=== PATIENT | female | born 1990 | race African-American/Black ===

== ENCOUNTER 2022-05-27 07:55 | Inpatient (IN) | payer OTHER ==
[2022-05-27] MEDS ORDERED: CITRIC ACID/SODIUM CITRATE 30 ML UNIT-DOSE CUP PO ONE (08:30)
[2022-05-27] MEDS ORDERED: ELECTROLYTE-148 SOLN 500 ML IV SCH ×2 (08:30→09:00)
[2022-05-27] MEDS ORDERED: DEXAMETHASONE SOD PHOSPHATE 4 MG/1 ML VIAL ONE (09:50)
[2022-05-27] MEDS ORDERED: ceFAZolin SODIUM 1 GM VIAL ONE (09:50)
[2022-05-27] MEDS ORDERED: morphine SULFATE/PF 1 MG/2 ML (2cc Syringe - QUVA) ONE (09:50)
[2022-05-27] MEDS ORDERED: ONDANSETRON 4 MG/2 ML VIAL ONE (09:50)
[2022-05-27 09:59] VITALS: BMI 31.6
[2022-05-27] MEDS ORDERED: ONDANSETRON 4 MG/2 ML VIAL IVPUSH PRN (10:00)
[2022-05-27] MEDS ORDERED: ACETAMINOPHEN 325 MG TABLET (FP) PO PRN ×2 (10:00→12:34)
[2022-05-27] MEDS ORDERED: OXYTOCIN 30 UNITS in 0.9% NS 30 UNIT/500 ML INFUS.BAG IVPB ONE (10:22)
[2022-05-27] MEDS ORDERED: ELECTROLYTE-148 SOLN 1,000 ML IV SCH (10:30)
[2022-05-27] MEDS ORDERED: ePHEDrine SULFATE 50 MG/1 ML AMPULE ONE (10:40)
[2022-05-27] MEDS ORDERED: SODIUM CHLORIDE 0.9% P/F 10 ML VIAL IJ ONE (10:40)
[2022-05-27] MEDS ORDERED: OXYTOCIN 10 UNITS/ML VIAL ONE ×2 (11:56)
[2022-05-27 12:28] LABS: CORD BASE EXCESS -3.2 mmol/L (0-2); CORD HCO3 23.6 mmHg (20-29); CORD HCO3 25.4 mmHg (20-29); CORD PCO2 47.2 mmHg (30-78); CORD PCO2 60.3 mmHg (30-78); CORD pH 7.243 (7.14-7.44); CORD pH 7.316 (7.14-7.44)
[2022-05-27] MEDS ORDERED: WITCH HAZEL 50% (TUCKS) 40 PAD/JAR PAD TP PRN (12:34)
[2022-05-27] MEDS ORDERED: IBUPROFEN 800 MG/8 ML IJ IVPB PRN (12:34)
[2022-05-27] MEDS ORDERED: BENZOCAINE 20% 57 GM BOTTLE TP PRN (12:34)
[2022-05-27] MEDS ORDERED: METHYLERGONOVINE MALEATE 0.2 MG/1 ML AMP IM PRN (12:34)
[2022-05-27] MEDS ORDERED: BENZOCAINE 28 GM HEMORRHOIDAL OINTMENT TP PRN (12:34)
[2022-05-27] MEDS ORDERED: IBUPROFEN 600 MG TABLET (FP) PO PRN (12:34)
[2022-05-27] MEDS ORDERED: OXYTOCIN 20 UNITS in 0.9% NS 20 UNIT/1,000 ML INFUS.BAG IV SCH (12:45)
[2022-05-27] MEDS: CEFAZOLIN 1 GM in DEXTROSE 5%-WATER - 50 ML IVPB SCH (18:01)
[2022-05-27] MEDS: FERROUS SO4 325 MG TABLET (FP) PO SCH (21:19)
[2022-05-28] MEDS ORDERED: oxyCODONE HCL 5 MG TABLET PO PRN ×2 (00:34)
[2022-05-28] MEDS: CEFAZOLIN 1 GM in DEXTROSE 5%-WATER - 50 ML IVPB SCH ×2 (02:38→11:14)
[2022-05-28] MEDS: IBUPROFEN 600 MG TABLET (FP) PO PRN (05:46)
[2022-05-28] MEDS: SIMETHICONE 80 MG TAB.CHEW (FP) PO PRN ×2 (05:46→20:01)
[2022-05-28] MEDS: PRENATAL VITAMINS W/ FOLIC ACID TABLET (FP) PO SCH (09:07)
[2022-05-28] MEDS: FERROUS SO4 325 MG TABLET (FP) PO SCH ×2 (09:07→21:10)
[2022-05-28] MEDS: ENOXAPARIN NA (PORCINE) 40 MG/0.4 ML DISP.SYRIN SQ SCH (09:07)
[2022-05-28 09:18] LABS: BASO % 0.6 % (0-2.0); EOS % 0.5 % (0-4.5); HEMOGLOBIN 12.7 GM/dL (10.7-15.3); LYMPH % 22.4 % (8-40); MCH 28.2 pg (25.7-33.7); MCHC 33.3 g/dl (32.0-36.0); MEAN CELL VOLUME 84.8 fl (80-96); MEAN PLT VOLUME 8.7 fl (7.5-11.1); MONO % 8.6 % (3.8-10.2); NEUT % 67.9 % (42.8-82.8); PLATELET COUNT 187 10^3/uL (134-434); RBC 4.49 M/mm3 (3.60-5.2); RDW 14.5 % (11.6-15.6)
[2022-05-28] MEDS ORDERED: FLU VACC QS2022-23(6MOS UP)/PF 60 MCG/0.5 ML SYRINGE IM ONE (10:00)
[2022-05-28] MEDS ORDERED: BISACODYL 10 MG SUPP.RECT RC PRN (12:34)
[2022-05-28] MEDS: SENNOSIDES/DOCUSATE COMBO (SENNA PLUS) TABLET (UD) PO PRN (21:11)
[2022-05-29] MEDS: SIMETHICONE 80 MG TAB.CHEW (FP) PO PRN ×4 (05:40→22:13)
[2022-05-29] MEDS: IBUPROFEN 600 MG TABLET (FP) PO PRN ×4 (05:40→22:13)
[2022-05-29] MEDS: FERROUS SO4 325 MG TABLET (FP) PO SCH ×2 (09:14→22:13)
[2022-05-29] MEDS: ENOXAPARIN NA (PORCINE) 40 MG/0.4 ML DISP.SYRIN SQ SCH (09:14)
[2022-05-29] MEDS: PRENATAL VITAMINS W/ FOLIC ACID TABLET (FP) PO SCH (09:14)
[2022-05-29 22:12] VITALS: RESP 18
[2022-05-29] MEDS: SENNOSIDES/DOCUSATE COMBO (SENNA PLUS) TABLET (UD) PO PRN (22:13)
[2022-05-30] MEDS: SIMETHICONE 80 MG TAB.CHEW (FP) PO PRN (04:43)
[2022-05-30] MEDS: IBUPROFEN 600 MG TABLET (FP) PO PRN ×2 (04:43→12:32)
[2022-05-30 07:52] LABS: BASO % 0.8 % (0-2.0); EOS % 3.3 % (0-4.5); HEMATOCRIT 40.7 % (32.4-45.2); HEMOGLOBIN 13.5 GM/dL (10.7-15.3); LYMPH % 25.7 % (8-40); MCH 28.5 pg (25.7-33.7); MCHC 33.2 g/dl (32.0-36.0); MEAN CELL VOLUME 85.9 fl (80-96); MEAN PLT VOLUME 8.3 fl (7.5-11.1); MONO % 8.2 % (3.8-10.2); PLATELET COUNT 210 10^3/uL (134-434); RBC 4.74 M/mm3 (3.60-5.2); WHITE BLOOD COUNT 9.4 K/mm3 (4.0-10.0)
[2022-05-30] MEDS: PRENATAL VITAMINS W/ FOLIC ACID TABLET (FP) PO SCH (09:03)
[2022-05-30] MEDS: ENOXAPARIN NA (PORCINE) 40 MG/0.4 ML DISP.SYRIN SQ SCH (09:03)
[2022-05-30] MEDS: FERROUS SO4 325 MG TABLET (FP) PO SCH (09:03)
[2022-05-30 11:16] VITALS: BP 119/71; PULSE 78; TEMP 97.5
== END 2022-05-30 14:20 | disposition home or self-care (01) | DRG 788 ==
LOC: JLDR 07:55 → J3W 14:00
PROVIDERS: ADMIT Obstetrics & Gynecology; ATTEND Obstetrics & Gynecology
PROC: 10D00Z1 Extraction of Products of Conception, Low, Open Approach (ICD-10-PCS; principal; 2022-05-27)
DX: O32.8XX0 Maternal care for other malpresentation of fetus, not applicable or unspecified (principal); O24.420 Gestational diabetes mellitus in childbirth, diet controlled; Z3A.39 39 weeks gestation of pregnancy; Z37.0 Single live birth
CPT/HCPCS: 36415; 36600; 82803; 82962; 85025; 88307-TC; G0008; Q2036